=== PATIENT | male | born 1995 | race Caucasian/White ===

== ENCOUNTER 2019-12-31 14:22 | Inpatient (IN) | payer MEDICAID ==
[~2019-12-31] VITALS: Ht 177.8 cm; Wt 65.8 kg
--- NOTE | 2019-12-31 14:22 | NUR ---
Patient RUPERTO MARGARITOS, accompanied by [place] [employer] and [employer], transferred to bed 5. RN evaluating patient at bedside.
[2019-12-31 14:28] VITALS: BP 122/73
[2019-12-31] MEDS ORDERED: HALOPERIDOL IM 5 MG/ML VIAL IM ONE (14:35)
[2019-12-31] MEDS ORDERED: diphenhydrAMINE 50 MG/ML VIAL IM ONE (14:35)
[2019-12-31] MEDS ORDERED: LORazepam 2 MG/ML VIAL IM ONE (14:35)
--- NOTE | 2019-12-31 14:38 | NUR ---
PT CURSING, CRYING HYSTERICALLY, AND THREATENING STAFF STATES "I AM GOING TO HURT YOU ALL WHEN I GET OUT OF HERE"
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
--- NOTE | 2019-12-31 14:40 | NUR ---
BENADRYL, HALDOL, AND ATIVAN IM ADMINISTERED BY DANNIELLE RN, GISSELLE RN, AND OSCAR MEZA
[2019-12-31] MEDS ORDERED: ONDANSETRON 4 MG/2 ML VIAL ONE (14:54)
[2019-12-31] MEDS ORDERED: KETAMINE 500 MG/5 ML VIAL IM ONE (14:55)
[2019-12-31] MEDS ORDERED: ONDANSETRON 4 MG/2 ML VIAL IM ONE (15:05)
[2019-12-31] MEDS ORDERED: NACL 0.9% 1,000 ML IV ONE ×3 (15:15→16:35)
[2019-12-31 15:21] LABS: BASOPHILS % (AUTO) 0.2 % (0.0-2.0); EOSINOPHILS # (AUTO) 0.2 K/uL (0-0.4); EOSINOPHILS % (AUTO) 2.1 % (0.0-4.0); HEMATOCRIT 44.7 % (36-52); HEMOGLOBIN 15.2 g/dL (12.0-18.0); LYMPHOCYTES # (AUTO) 1.2 K/uL (2.0-11.5); LYMPHOCYTES % (AUTO) 14.2 % (20.5-51.1); MEAN CORPUSCULAR HEMOGLOBIN 31 pg (27-31); MEAN CORPUSCULAR HGB CONC 34 g/dL (33-37); MEAN CORPUSCULAR VOLUME 91.2 fL (80-94); MONOCYTES # (AUTO) 0.5 K/uL (0.8-1.0); MONOCYTES % (AUTO) 6.4 % (1.7-9.3); NEUTROPHILS # (AUTO) 6.6 K/uL (1.8-7.7); NEUTROPHILS % (AUTO) 77.1 % (42.2-75.2); PLATELET COUNT (AUTO) 201 K/uL (140-450); RED CELL DISTRIBUTION WIDTH 13.2 % (11.6-13.7); WHITE BLOOD COUNT (AUTO) 8.5 K/uL (4.8-10.8)
[2019-12-31 15:43] LABS: ALBUMIN 4.4 g/dL (3.4-5.0); ANION GAP 9.6 (8-16); ASPARTATE AMINOTRANSFERASE 21 U/L (15-37); CARBON DIOXIDE 29.9 mmol/L (21-32); CHLORIDE 106 mmol/L (98-107); CREATININE 1.3 mg/dL (0.6-1.3); GFR ARICAN-AMERICAN 89 mL/min (>90); GLUCOSE 99 mg/dL (74-106); POTASSIUM 3.5 mmol/L (3.5-5.1); SODIUM SERUM 142 mmol/L (136-145); TOTAL BILIRUBIN 0.9 mg/dL (0.0-1.0); UREA NITROGEN, BLOOD 14 mg/dL (7-18)
--- NOTE | 2019-12-31 15:43 | NUR ---
PT RESTING WITH EYES CLOSED, CALM. RR EVEN AND UNLABORED. VSS. WILL CONTINUE TO MONITOR
[2019-12-31 15:46] LABS: ACETAMINOPHEN < 0.5 ug/ml (10-30); SALICYLATE < 2.8 mg/dL (2.8-20.0)
--- NOTE | 2019-12-31 16:08 | NUR ---
INITATED AN ADDITIONAL FLUID BOLUS. PT IS RESTING AT BEDSIDE. R/R EVEN AND UNLABORED. WILL CONTINUE TO MONITOR.
--- NOTE | 2019-12-31 16:31 | NUR ---
UNABLE TO OBTAIN URINE VIA STRAIGHT CATH AFTER 2L NS BOLUS. DR RUIZ MADE AWARE
--- NOTE | 2019-12-31 16:51 | NUR ---
RESTING IN BED WITH EYES CLOSED, VISIBLE RISE AND FALL OF THE CHEST. ON REFERRAL CLERK, PULSE OX, AND BP CUFF. VSS STABLE
[2019-12-31 17:22] LABS: BARBITURATE, URINE NEGATIVE ng/ml (NEG <=200); BENZODIAZEPINE, URINE POSITIVE ng/mL (NEG <=200); COCAINE, URINE NEGATIVE ng/mL (NEG <=300)
[2019-12-31 17:23] LABS: CANNABINOID, URINE NEGATIVE ng/mL (NEG <=50); OPIATE, URINE NEGATIVE ng/mL (NEG <=2000); PHENCYCLIDINE SCREEN,URINE NEGATIVE ng/mL (NEG <=25)
[2019-12-31] MEDS ORDERED: KETOROLAC 30 MG/ML VIAL IVP ONE (18:00)
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
--- NOTE | 2019-12-31 18:40 | NUR ---
PT DENIES PAIN AT THIS TIME. RR EVEN AND UNLABORED. VSS. WILL CONTINUE TO MONITOR
--- NOTE | 2019-12-31 19:10 | NUR ---
Pt report RECEIVED FROM DERRICK HICKMAN . Transfer of care at this time.
--- NOTE | 2019-12-31 19:59 | NUR ---
Packet received for placement.
--- NOTE | 2019-12-31 20:30 | NUR ---
PT SLEEPING IN BED IN POSITION FOR COMFORT, BED LOW AND LOCKED, 2 SIDERAILS UP, VSS, SUICIDE PRECAUTIONS IN PLACE, ROOM FREE OF HAZARDOUS MATERIAL, WILL CONTINUE TO MONITOR.
[2019-12-31] MEDS ORDERED: ONDANSETRON 4 MG/2 ML VIAL IVP PRN (21:30)
[2019-12-31] MEDS ORDERED: ACETAMINOPHEN 325 MG TAB PO PRN (21:30)
--- NOTE | 2019-12-31 21:37 | NUR ---
PT SLEEPING IN BED IN POSITION OF COMFORT, BED LOW AND LOCKED, 2 SIDERAILS UP, VSS, SUICIDE PRECAUTIONS IN PLACE, ROOM FREE OF HAZARDOUS MATERIAL, WILL CONTINUE TO MONITOR.
[2019-12-31 21:58] LABS: APPEARANCE,URINE CLEAR (CLEAR); BILIRUBIN,URINE NEGATIVE (NEGATIVE); BLOOD, URINE NEGATIVE (NEGATIVE); COLOR,URINE YELLOW (YELLOW); LEUKOCYTE ESTERASE ,URINE NEGATIVE (NEGATIVE); NITRITE, URINE NEGATIVE (NEGATIVE); UGLUCOSE NEGATIVE (NEGATIVE)
[2019-12-31 21:59] LABS: PROTHROMBIN TIME 10.1 secs (10.8-13.4)
[2019-12-31 22:10] LABS: MAGNESIUM 1.7 mg/dL (1.8-2.4); PHOSPHORUS 3.1 mg/dL (2.5-4.9); THYROID STIMULATING HORMONE 1.36 uIU/mL (0.34-3.74)
--- NOTE | 2019-12-31 22:18 | NUR ---
Patient will be admitted to care of DR. MASSEY . Admited to [facility]. Will go to room 110A. Belongings list completed. Report to DERRICK JOSE .
--- NOTE | 2019-12-31 22:24 | NUR ---
[facility] s/w Jan no beds. Packet fax for AM discharges [facility], packet fax [facility], packet fax
[2019-12-31 22:30] VITALS: BP 99/55
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
[2020-01-01] VITALS: BP 107/60
--- NOTE | 2020-01-01 | NUR ---
SLEEPING ON HIS RIGHT SIDE, OCCASIONALLY TURNS TO THE RIGHT AND LEFT. VS STABLE.
--- NOTE | 2020-01-01 01:50 | NUR ---
Patient's Plan of Care was discussed and reviewed with SHERIFFS: Bianca Quinn. [id number]
--- NOTE | 2020-01-01 02:00 | NUR ---
COMFORTABLE IN BED, SLEEPING ON HIS LEFT SIDE.
[2020-01-01 04:00] VITALS: BP 111/65
--- NOTE | 2020-01-01 04:00 | NUR ---
STILL SLEEPING, VS STABLE.
--- NOTE | 2020-01-01 05:21 | NUR ---
Still no beds at any of the designated facilities. will endorse to incoming shift to seek further placement during their shift
--- NOTE | 2020-01-01 05:30 | NUR ---
TECH BRAZER TESTER CAME AND DID CHEST X-RAY, STILL VERY DROWSY. CONTINUED SLEEPING AFTER PROCEDURE DONE.
--- NOTE | 2020-01-01 05:50 | NUR ---
SEEMS TO REFUSED BLOOD DRAW FOR AM LABS, STATED HE WANTS TO GO HOME. MURMURS BUT CONTINUED SLEEPING.
[2020-01-01 06:25] LABS: BASOPHILS % (AUTO) 0.1 % (0.0-2.0); EOSINOPHILS # (AUTO) 0.2 K/uL (0-0.4); EOSINOPHILS % (AUTO) 4.1 % (0.0-4.0); HEMATOCRIT 39.2 % (36-52); HEMOGLOBIN 13.6 g/dL (12.0-18.0); LYMPHOCYTES # (AUTO) 1.6 K/uL (2.0-11.5); LYMPHOCYTES % (AUTO) 26.2 % (20.5-51.1); MEAN CORPUSCULAR HEMOGLOBIN 32 pg (27-31); MEAN CORPUSCULAR HGB CONC 35 g/dL (33-37); MEAN CORPUSCULAR VOLUME 91.2 fL (80-94); MONOCYTES # (AUTO) 0.5 K/uL (0.8-1.0); NEUTROPHILS # (AUTO) 3.7 K/uL (1.8-7.7); NEUTROPHILS % (AUTO) 61.6 % (42.2-75.2); PLATELET COUNT (AUTO) 169 K/uL (140-450); RED BLOOD CELL COUNT(AUTO) 4.29 MIL/uL (4.20-6.10)
[2020-01-01 06:49] LABS: ANION GAP 10.3 (8-16); CARBON DIOXIDE 28.5 mmol/L (21-32); CREATININE 1.1 mg/dL (0.6-1.3); POTASSIUM 3.8 mmol/L (3.5-5.1)
--- NOTE | 2020-01-01 06:50 | NUR ---
STILL SLEEPING [id number] IN BED. RESPIRATION EVEN AND UNLABORED. SAFETY MAINTAINED DURING SHIFT. WILL ENDORSE TO AM SHIFT NURSE FOR CONTINUITY OF CARE.
--- NOTE | 2020-01-01 07:10 | NUR ---
RECEIVED PT FROM MATERIAL MOVERS NURSE. PT IS CURRENTLY ASLEEP WITH NO SIGNS OF DISTRESS OR COMPLAINTS OF PAIN AT THIS TIME. RESPIRATIONS ARE EVEN AND UNLABORED ON ROOM AIR. BILATERAL ABRASIONS TO BOTH LEGS AND MINOR SCRATCH ON NECK. IV IS ASYMPTOMATIC, PATENT, AND INFUSING PER ORDER. SAFETY MEASURES IN PLACE AND WILL CONTINUE TO MONITOR.
--- NOTE | 2020-01-01 07:15 | NUR ---
ENDORSED TO DERRICK JENKINS FOR CONTINUITY OF CARE.
[2020-01-01 07:33] LABS: CHOL/HDL RATIO 2.5 (1-4.5); MAGNESIUM 1.9 mg/dL (1.8-2.4); PHOSPHORUS 3.8 mg/dL (2.5-4.9)
--- NOTE | 2020-01-01 08:08 | NUR ---
Received report from overnight babysitter. There are no beds at this time. [facility] still looking for placement.
--- NOTE | 2020-01-01 09:16 | NUR ---
PATIENT HAS BEEN SCREENED AND CATEGORIZED LOW NUTRITION RISK. PATIENT WILL BE SEEN WITHIN 7 DAYS OF ADMISSION. 01/07/[address]
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
[2020-01-01] MEDS ORDERED: diphenhydrAMINE 50 MG/ML VIAL IVP PRN (10:05)
[2020-01-01] MEDS ORDERED: HALOPERIDOL IM 5 MG/ML VIAL IM PRN (10:05)
[2020-01-01] MEDS ORDERED: LORazepam 2 MG/ML VIAL IM PRN (10:05)
--- NOTE | 2020-01-01 10:53 | NUR ---
PT IS CURRENTLY SLEEPING WITH NO SIGNS OF DISTRESS. MEDICATION ORDERS HAVE BEEN PLACED FOR PATIENTS INCREASING AGITATION. WILL TRY NONINVASIVE MEASURES TO CALM HIM DOWN. SAFETY MEASURES IN PLACE AND WILL CONTINUE TO MONITOR.
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
--- NOTE | 2020-01-01 12:33 | NUR ---
PT CURRENTLY FINISHED LUNCH AT BEDSIDE. PT TOLD DR. CHAVEZ THAT HE WOULD LIKE OT MAKE A PHONE CALL TO A PERSON NAMED ANABELA. ALLOWED PT TO MAKE PHONE CALL. SAFETY MEASURES IN PLACE AND WILL CONTINUE TO MONITOR.
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
--- NOTE | 2020-01-01 14:34 | NUR ---
PT WOKE UP AND STATED THAT HIS SKIN JACOBSEN. PT WANTS TO SHOWER AND SAYS THAT HE HAS BEEN USING FUR REMODELER TO WASH HIMSELF, STARTED RIPPING OUT PAPER TOWELS TO TRY AND WASH HIMSELF. GAVE PT WASH CLOTHS TO USE IN ORDER TO SPONGE BATH. PT REFUSED ATIVAN AND MEHTA SNOT WANT ANY MEDICATION
--- NOTE | 2020-01-01 14:35 | NUR ---
CARTON PACKAGING MACHINE OPERATOR NOTE: JERONIMO ATTEMPTED TO MEET PATIENT AT BEDSIDE. PATIENT APPEARED TO BE SLEEPING. JERONIMO CALLED PATIENT'S NAME 3X. PATIENT DID NOT RESPOND. JERONIMO WILL FOLLOW UP WITH PATIENT AT A LATER TIME TO COMPLETE ASSESSMENT. Addendum: 01/02/20 at 0833 by Robinson PORTILLO JERONIMO CONTACTED ART FROM [facility] [phone]. JERONIMO INFORMED ART THAT PATIENT NOW HAS [facility]. JERONIMO FAXED UPDATED FACE SHEET TO ART [phone]. JERONIMO WILL FOLLOW UP WITH PATIENT TO COMPLETE ASSESSMENT. Addendum: 01/02/20 at 1035 by Robinson Mckeon [facility] Patient: Fer Zamora : 1995 Age/Sex: 24/M Unit#: [id number] Room/Bed: 109/B User: Robinson Mckeon Date: 01/02/20 10:19 Type: CM: Discharge Planning Basic Screen: Yes High Risk DC Screen Spreckels: ALINA Turner Relationship: MOTHER Pre-Admission Living Arrangements: Other Prior ADL Independent Current Home Health Name/Tel: N/A Current / Name/Tel: N/A Current Hospice Name/Tel: N/A Current Dialysis Name/Tel: N/A Healthcare Decision Maker: Patient Advance Directive No Physician Orders for Life Sustaining Treatment Form No Patient/Family Have Educational Needs No Information Taught: Community Resources Person Taught: Patient Teaching Tools: Verbal Factors Affecting Learning: None Participation Level: Active Evaluation: Verbalizes Understanding Needs Additional Education: No Discipline: Case Mgt/Social Svcs Tentative Discharge Plan/Destination: Other Will require assistance post discharge: No Referred to Service Desk Technician: No Tentative Discharge Plan Summary: PATIENT IS A 24-YEAR-OLD MALE ADMITTED FOR SUICIDAL IDEATION. PATIENT HAS PMHX OF SUICIDAL IDEATIONS. PATIENT STATED HE WAS HOMELESS AND STAYING OUT OF HIS CAR. SW MET WITH PATIENT AT BEDSIDE TO VERIFY DEMOGRAPHICS. PATIENT STATED THAT HE WAS STAYING WITH HIS SIGNIFICANT OTHER PRIOR TO BEING HOMELESS. PATIENT STATED HE WAS HOMELESS FOR 1 WEEK AND STAYING IN HIS CAR. SW PROVIDED HOMELESS RESOURCES TO PATIENT. PATIENT WAS GUARDED DURING ASSESSMENT. PATIENT REPORTED THAT HE NO LONGER FEELS SUICIDAL AND REPORTS NO CURRENT SI/HI. PATIENT STATED THAT HE DOES NOT EXPERIENCE AH/VH. PATIENT STATED THAT HE USES METHAMPHETAMINES DAILY AND THAT HE IS VERY TIRED. SW PROVIDED SUBSTANCE ABUSE RESOURCES. WHEN ASKED ABOUT MENTAL HEALTH HISTORY, PATIENT DENIED. PATIENT REFUSED MENTAL HEALTH RESOURCES. SW HAD DISCUSSION WTIH PATIENT REGARDING DISCHARGE PLAN. PATIENT STATED THAT HE WOULD RECEIVE ASSISTANCE FROM HIS MOTHER. SW CONTACTED ALINA LILLIAN [phone]. PER ALINA, PATIENT'S GRANDFATHER JORDON MAYORGA [phone] WOULD BE ABLE TO PICK PATIENT UP AND FACILITATE GETTING PATIENT BACK TO [place] WHERE PATIENT IS FROM. ALINA STATED THAT HER BROTHER, JORDON MAYORGA JR. [phone] MAY ALSO ASSIST PATIENT IN BUYING A BUS TICKET TO [place]. ALINA STATED THAT SHE IS COORDINATING PLANS WITH HER FAMILY DEPENDING ON DISCHARGE DATE OF PATIENT. ALINA PROVIDED HER ADDRESS WHERE SHE EXPECTS PATIENT TO RETURN TO: [address] [place] [address], [id number]. ALINA STATED THAT SHE WILL FACILITATE AND BUY PATIENT'S TICKET HOME TO RESUME PATIENT'S CARE WHERE HE IS FROM. TENTATIVE DISCHARGE PLAN IS FOR PATIENT TO PSYCHIATRIC FACILITY. SW WILL REMAIN AVAILABLE IF ISSUES ARISE. Signature: BRYSON RAMOS Date: January 02, 2020 Time: 10:34
--- NOTE | 2020-01-01 16:19 | NUR ---
PATIENT IS CURRENTLY SLEEPING WITH NO SIGNS OF DISTRESS NOTED. DR. VIVAR IS CURRENTLY AND WILL ASSESS PT.
--- NOTE | 2020-01-01 18:05 | NUR ---
PT IS VERY AGITATED AND WANTS TO BE RELEASED. PT STATES THAT HE WANTS TO "SMOKE SOME DOPE AND CIGARETTES". ATIVAN WAS ADMINISTERED FOR SEVERE AGITATION. SAFETY MEASURES IN PLACE AND WILL CONTINUE TO MONITOR.
--- NOTE | 2020-01-01 18:37 | NUR ---
PT IS CURRENTLY SLEEPING IN BED. PT DOES NOT SHOW ANY SIGNS OF DISTRESS AT THIS TIME. SAFETY MEASURES IN PLACE AND WILL CONTINUE OT MONITOR. WILL ENDORSE TO NETWORK PROJECT MANAGER NURSE FOR CONTINUITY OF CARE
--- NOTE | 2020-01-01 19:00 | NUR ---
RECD. SLEEPING COMFORTABLY IN BED. RESPIRATION EVEN AND UNLABORED. IV SALINE LOCK AT THE LEFT FOREARM PATENT AND INTACT. 1:1 SITTER MONITORING PATIENT FOR SAFETY. NO APPEARANCE OF PAIN NOTED 0/10.
[2020-01-01] MEDS: OLANZapine 5 MG TAB PO SCH (21:00)
--- NOTE | 2020-01-01 21:30 | NUR ---
STILL SLEEPING SOUNDLY IN BED.
[2020-01-02] VITALS: BP 114/71
--- NOTE | 2020-01-02 | NUR ---
VS REMAIN STABLE.
--- NOTE | 2020-01-02 02:00 | NUR ---
OCCASIONALLY TURNS TO THE RIGHT OR LEFT WHILE SLEEPING.
--- NOTE | 2020-01-02 04:00 | NUR ---
AMBULATED TO BR TO VOID, BACK TO BED AFTER VOIDING. WENT BACK TO SLEEP.
--- NOTE | 2020-01-02 06:40 | NUR ---
ABLE TO SLEEP WELL. NO AGITATION NOTED. WILL ENDORSE TO AM SHIFT NURSE FOR CONTINUITY OF CARE.
--- NOTE | 2020-01-02 07:10 | NUR ---
RECEIVED PATIENT FROM TECHNICAL STENOGRAPHER NURSE FOR CONTINUITY OF CARE. PATIENT IS CURRENTLY SLEEPING. NO SIGNS OF DISTRESS NOTED. RESPIRATIONS EVEN AND UNLABORED, ROOM AIR. VISIBLE CHEST RISE AND FALL NOTED. MED-SURG. ABDOMEN SOFT AND NONTENDER. SKIN WARM, DRY, AND INTACT. IV ON THE L FOREARM G20, SALINE LOCK. ABRASIONS BILAT KNEE NOTED. PATIENT IS CONTINENT. AMBULATORY. ON A 5150 HOLD FOR SUICIDAL IDEATION. 1:[address] UNIVERSAL FALL PRECAUTION. BED IN LOW POSITION. CALL LIGHT IS WITHIN REACH. WILL CONTINUE TO MONITOR.
[2020-01-02 07:20] LABS: CARBON DIOXIDE 29.9 mmol/L (21-32); CREATININE 0.9 mg/dL (0.6-1.3); POTASSIUM 3.9 mmol/L (3.5-5.1)
[2020-01-02 07:28] LABS: BASOPHILS % (AUTO) 0.4 % (0.0-2.0); EOSINOPHILS # (AUTO) 0.2 K/uL (0-0.4); EOSINOPHILS % (AUTO) 3.6 % (0.0-4.0); HEMATOCRIT 41.8 % (36-52); HEMOGLOBIN 14.2 g/dL (12.0-18.0); LYMPHOCYTES # (AUTO) 1.5 K/uL (2.0-11.5); LYMPHOCYTES % (AUTO) 22.5 % (20.5-51.1); MEAN CORPUSCULAR HEMOGLOBIN 31 pg (27-31); MEAN CORPUSCULAR HGB CONC 34 g/dL (33-37); MEAN CORPUSCULAR VOLUME 91.3 fL (80-94); MONOCYTES # (AUTO) 0.4 K/uL (0.8-1.0); MONOCYTES % (AUTO) 6.4 % (1.7-9.3); NEUTROPHILS # (AUTO) 4.5 K/uL (1.8-7.7); NEUTROPHILS % (AUTO) 67.1 % (42.2-75.2); PLATELET COUNT (AUTO) 179 K/uL (140-450); RED BLOOD CELL COUNT(AUTO) 4.58 MIL/uL (4.20-6.10); WHITE BLOOD COUNT (AUTO) 6.7 K/uL (4.8-10.8)
--- NOTE | 2020-01-02 07:36 | NUR ---
Received report from manager hvac. There are no beds at this time.
--- NOTE | 2020-01-02 07:42 | NUR ---
DR. MASSEY AND THE RESIDENT DOCTORS MADE ROUNDS
[2020-01-02 08:00] VITALS: BP 116/65
[2020-01-02] MEDS: OLANZapine 5 MG TAB PO SCH (08:39)
--- NOTE | 2020-01-02 08:42 | NUR ---
GIVEN OLANZAPINE PO. EXPLAINED MEDICATION. 1:[address] WILL CONTINUE TO MONITOR.
--- NOTE | 2020-01-02 09:37 | NUR ---
Received updated facesheet with insurance info. Packet faxed to: [facility] Packet re-faxed to: [facility]
--- NOTE | 2020-01-02 10:42 | NUR ---
PATIENT IS CURRENTLY SLEEPING AT THIS TIME. NO SIGNS OF DISTRESS NOTED. RESPIRATIONS EVEN AND UNLABORED. 1:[address] WILL CONTINUE TO MONITOR
--- NOTE | 2020-01-02 11:47 | NUR ---
SECURITY BROUGHT PATIENT'S CELLPHONE AND BEHAVIORAL INTERVENTIONIST BECAUSE PATIENT STATED HE NEEDS TO CALL ONE OF HIS FRIENDS FOR A RIDE.
--- NOTE | 2020-01-02 11:50 | NUR ---
PATIENT STATED HE WANTS TO LEAVE THE HOSPITAL, HOWEVER, PATIENT IS ON A 5150 HOLD. WILL LET RESIDENT AWARE
--- NOTE | 2020-01-02 11:56 | NUR ---
SECURITY IS CALLED BECAUSE PATIENT IS BEING COMBATIVE AT THIS TIME. 1:1 SITTER BY THE DOOR.
--- NOTE | 2020-01-02 12:18 | NUR ---
PATIENT IS BACK TO BED AND SLEEPING. 1:[address]
--- NOTE | 2020-01-02 13:28 | NUR ---
PATIENT AMBULATED TO THE BATHROOM. 1:[address]
--- NOTE | 2020-01-02 15:05 | NUR ---
DR. CHAVEZ AT BEDSIDE. PATIENT IS INSISTING TO LEAVE THE HOSPITAL, HOWEVER, IS EXPLAINING HE IS ON A 5150 HOLD. SECURITY WAS CALLED. DR. CHAVEZ TO GIVE ATIVAN IM AND BENADRYL IVP. WHEN MEDS WERE READY, PATIENT ELOPED. [place] PD WILL BE CALLED.
--- NOTE | 2020-01-02 15:15 | NUR ---
CALLED STEPHANY BURCIAGA TO REPORT ELOPEMENT OF PATIENT. NO ANSWER, WILL TRY AGAIN
--- NOTE | 2020-01-02 15:25 | NUR ---
CALLED STEPHANY BURCIAGA TO REPORT ELOPEMENT OF PATIENT. AGAIN, NO ANSWER, WILL TRY AGAIN
--- NOTE | 2020-01-02 15:35 | NUR ---
STILL NO ANSWER FROM STEPHANY BURCIAGA TO REPORT ELOPEMENT OF PATIENT. WILL TRY CALLING AGAIN
--- NOTE | 2020-01-02 15:45 | NUR ---
AGAIN NO ANSWER FROM STEPHANY BURCIAGA TO REPORT ELOPEMENT OF PATIENT. WILL TRY CALLING BORIS
--- NOTE | 2020-01-02 16:00 | NUR ---
CALLED STEPHANY BURCIAGA TO REPORT ELOPEMENT OF PATIENT. NO ANSWER.
--- NOTE | 2020-01-02 16:15 | NUR ---
SPOKE WITH STEPHANY BURCIAGA. DISPATCH ACTIVATED PER PD
--- NOTE | 2020-01-02 16:31 | NUR ---
SPOKE WITH THE PATIENT'S MOTHER, JONO ATKINSON. SHE STATED THAT SHE WILL NOTIFY HIS DAD AND PATIENT'S MOM'S BROTHER WHO LIVES HERE IN [place] AND TO CALL STEPHANY BURCIAGA Addendum: 01/02/20 at 1751 by Princess Carmen Elliott RN [phone] - MOTHER'S PHONE NUMBER
--- NOTE | 2020-01-02 16:41 | NUR ---
[employer] PILOT [facility] IN UNIT.
--- NOTE | 2020-01-02 16:58 | NUR ---
PATIENT COUSIN RACHID GUZMAN CALLED AND SPOKED WITH. SHE STATED THAT PATIENT JUST TEXTED HIM ABOUT LEAVING HOSPITAL. I ASKED HER TO LET ME KNOW WHERE THE PATIENT IS CURRENTLY AT WHEN HE REPLIED TO HER TEXT. HER PHONE NUMBER IS [phone]
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
--- NOTE | 2020-01-02 17:58 | NUR ---
ANA, PHARMACIST, AWARE ABOUT THE BENADRYL AND ATIVAN THAT WERE DRAWN. GOING TO WASTE THEM. CHARGE NURSE AWARE.
[2020-01-02] MEDS ORDERED: OLANZapine 5 MG TAB PO SCH (21:00)
== END 2020-01-02 15:07 | disposition left against medical advice (07) | DRG 812 ==
LOC: MED 14:22 → MTU 21:27
PROVIDERS: ADMIT General Practice; ATTEND General Practice
DX: T43.621A Poisoning by amphetamines, accidental (unintentional), initial encounter (principal); G92 Toxic encephalopathy; E83.42 Hypomagnesemia; R45.851 Suicidal ideations; F29 Unspecified psychosis not due to a substance or known physiological condition; F32.9 Major depressive disorder, single episode, unspecified; Z59.0 Homelessness; Z88.1 Allergy status to other antibiotic agents; Z91.018 Allergy to other foods; Y92.89 Other specified places as the place of occurrence of the external cause
CPT/HCPCS: 36415; 71045; 80048; 80053; 80305; 81003; 83036; 83735; 83880; 84100; 84443; 84484; 85025; 85610; 85730; 87081; 93005; 96361; 96374; 96375; 99285; G0480; G0482; J1200; J1630; J1885; J2060; J2405; Q0092